=== PATIENT | female | born 1960 | race Caucasian/White ===

== ENCOUNTER 2018-05-01 16:29 | Emergency (ER) | payer MEDICAID, OTHER ==
[2018-05-01] MEDS: ACETAMINOPHEN 500 MG TAB PO (17:50)
== END 2018-05-01 19:17 | disposition home or self-care (01) ==
LOC: FTE 16:29
DX: S63.91XA Sprain of unspecified part of right wrist and hand, initial encounter (principal); I10 Essential (primary) hypertension; M19.90 Unspecified osteoarthritis, unspecified site; W18.39XA Other fall on same level, initial encounter; Y92.9 Unspecified place or not applicable
CPT/HCPCS: 73030; 73030-RT; 73090-RT; 73110-RT; 99283-25

== ENCOUNTER 2018-05-15 12:12 | Emergency (ER) | payer MEDICAID ==
[2018-05-15 13:15] LABS: URINE BLOOD (Dip) POC 1+ (NEGATIVE); URINE GLUCOSE (Dip) POC Negative (NEGATIVE); URINE KETONES (Dip) POC Negative (NEGATIVE); URINE LEUKOCYTE EST (Dip) POC 1+ (NEGATIVE); URINE NITRITE (Dip) POC Negative (NEGATIVE); URINE TOTAL PROTEIN POC 1+ (NEGATIVE)
[2018-05-15 13:15] LABS: URINE PH (Dip) POC 5.5 (5.0-8.5)
== END 2018-05-15 17:26 | disposition home or self-care (01) ==
LOC: FTE 12:12
DX: M54.6 Pain in thoracic spine (principal); I10 Essential (primary) hypertension; M54.2 Cervicalgia; M25.511 Pain in right shoulder
CPT/HCPCS: 71045; 72040; 73030-RT; 81003; 99284-25

== ENCOUNTER 2018-08-20 12:20 | Emergency (ER) | payer MEDICAID ==
[2018-08-20] MEDS: SOD CHLORIDE 0.9% 1,000 ML IV (13:37)
[2018-08-20] MEDS: METOCLOPRAMIDE 10 MG INJ IV (13:37)
[2018-08-20 13:38] LABS: ADD MAN DIFF? NO
[2018-08-20 13:41] LABS: BASOPHILS % 0.4 % (0.0-2.0); EOSINOPHILS # 0.2 10^3/ul (0.0-0.5); EOSINOPHILS % 2.2 % (0.0-7.0); HEMATOCRIT 39.2 % (37.0-47.0); HEMOGLOBIN 12.7 g/dl (12.0-16.0); LYMPHOCYTES # 3.1 10^3/ul (0.8-2.9); MEAN CORPUSCULAR HGB CONC 32.4 g/dl (32.0-37.0); MEAN CORPUSCULAR VOLUME 86.5 fl (82.0-101.0); MEAN PLATELET VOLUME 10.2 fl (7.4-10.4); MONOCYTE # 0.4 10^3/ul (0.3-0.9); MONOCYTES % 5.4 % (0.0-11.0); NEUTROPHIL # 3.2 10^3/ul (1.6-7.5); NEUTROPHILS % 46.7 % (39.0-77.0); PLATELET COUNT 310 10^3/UL (140-415); RED BLOOD COUNT 4.53 10^6/ul (4.20-5.40); RED CELL DISTRIBUTION WIDTH 13.2 % (11.5-14.5)
[2018-08-20 13:41] LABS: WHITE BLOOD COUNT 6.9 10^3/ul (4.8-10.8)
[2018-08-20 14:03] LABS: ANION GAP 11 (5-13); BLOOD UREA NITROGEN 11 mg/dl (7-20); CALCIUM 9.3 mg/dl (8.4-10.2); CARBON DIOXIDE 26 mmol/L (21-31); CHLORIDE 108 mmol/L (97-110); CREATININE 0.62 mg/dl (0.44-1.00); Estimated GFR > 60 mL/min (>60); GLUCOSE 121 mg/dl (70-220); POTASSIUM 3.9 mmol/L (3.5-5.1); SODIUM 145 mmol/L (135-144)
[2018-08-20 14:46] LABS: ERYTHROCYTE SEDIMENTATION RATE 30 mm/Hr (0-30)
[2018-08-20] MEDS: SOD CHLORIDE 0.9% 100 ML (14:46)
[2018-08-20] MEDS: IOHEXOL 100 ML (14:46)
== END 2018-08-20 19:49 | disposition home or self-care (01) ==
LOC: E/R 12:20
DX: H57.02 Anisocoria (principal); R40.2142 Coma scale, eyes open, spontaneous, at arrival to emergency department; R40.2252 Coma scale, best verbal response, oriented, at arrival to emergency department; R40.2362 Coma scale, best motor response, obeys commands, at arrival to emergency department; I10 Essential (primary) hypertension
CPT/HCPCS: 36415; 70450; 70496; 70498; 70551; 80048; 85025; 85651; 96374; 99285-25